=== PATIENT | male | born 1955 | race African-American/Black ===

== ENCOUNTER 2019-12-13 08:50 | Outpatient (CLI) | payer OTHER, SELFPAY ==
--- NOTE | ~2019-12-13 | CT_ITS ---
EXAMINATION: CT chest abdomen pelvis w con EXAM DATE: 12/13/2019 09:24 INDICATION: Cancer body of stomach. TECHNIQUE: Spiral CT of the chest, abdomen and pelvis was performed without contrast. Axial, dave l and sagittal images were reviewed. Coronal maximum intensity pixel images of chest reviewed. The dose-length product (DLP) for this examination was 288.23 mGy-cm. The exposure was tailored accordin g to patient size (auto mA exposure control), and iterative reconstruction (ASIR) was used as additio nal dose reduction technique. Comparison is made to prior examination from 08/30/2019. FINDINGS: CHEST: There is a right-sided Chemo-Port. No central pulmonary emboli. The lungs are clear. There a re no pleural or pericardial effusions. Tracheobronchial tree is patent. There is no mediastinal, hilar or axillary lymphadenopathy. There is no pneumothorax. Heart normal in size. There are l ikely coronary arterial stent or stents. Correlate with prior cardiac history. ABDOMEN PELVIS: The liver, spleen, adrenal glands and pancreas are unremarkable. Gallbladder is unre markable. No biliary obstruction. Portal and splenic veins are patent. Kidneys enhance symmetrical ly. There is no hydronephrosis. The prostate is unremarkable. The bladder is unremarkable. There is no retroperitoneal or pelvic lymphadenopathy. There is mild scattered arteriosclerotic disease. Inguinal hernia repair. Small umbilical fat-containing hernia. The appendix is not positively visualized. There is no pericecal inflammatory change to suggest appe ndicitis. Again there are postoperative changes to the stomach with suture material, appearance not changed. There is moderate amount of colonic stool. No free intraperitoneal gas. There are no o steoblastic or osteolytic lesions identified. IMPRESSION: 1. No evidence of metastatic disease. 2. Surgical changes. Reviewed, dictated and finalized at location A.
[2019-12-13 09:15] LABS: Estimated Glomerular Filt Rate > 60
== END 2019-12-13 08:51 | disposition home or self-care (01) ==
LOC: ANHIMG 08:52
PROVIDERS: PCP Family Medicine; Visit Provider Internal Medicine Hematology & Oncology
DX: C16.9 Malignant neoplasm of stomach, unspecified (principal)
CPT/HCPCS: 36415; 71260; 74177; Q9967

== ENCOUNTER 2020-01-19 13:29 | Outpatient (CLI) | payer OTHER, SELFPAY ==
--- NOTE | ~2020-01-19 | XR_ITS ---
EXAMINATION: XR lumbar spine 2-3V DATE: 01/19/2020 13:44 INDICATION: Lumbar radiculopathy. TECHNIQUE: 3 views of lumbar spine were obtained. COMPARISON: CT abdomen and pelvis 12/13/2019 FINDINGS: There is 5 degrees dextrocurvature of thoracolumbar spine. Vertebral body heights are marcy l. There is mildly decreased disc height at L4-L5 with endplate osteophytes. There is multilevel mild facet joint osteoarthritis. Surgical clips overlie the right pelvis. IMPRESSION: 1. Mild lumbar spondylosis. Reviewed, dictated and finalized at location A. IMPRESSION: 1. Mild lumbar spondylosis.
== END 2020-01-19 13:30 | disposition home or self-care (01) ==
PROVIDERS: PCP Family Medicine; Visit Provider Family Medicine
DX: M47.26 Other spondylosis with radiculopathy, lumbar region (principal); M53.3 Sacrococcygeal disorders, not elsewhere classified; G89.29 Other chronic pain
CPT/HCPCS: 72100

== ENCOUNTER 2020-03-16 08:58 | Outpatient (CLI) | payer OTHER, SELFPAY ==
--- NOTE | ~2020-03-16 | CT_ITS ---
EXAMINATION: CT chest abdomen pelvis w con DATE: 03/16/2020 09:31 INDICATION: Cancer of the body of the stomach TECHNIQUE: Transaxial computed tomographic images of the chest, abdomen, and pelvis were obtained aft er the administration of 100 cc of Omnipaque 350 intravenous contrast. The dose-length product (DLP) was 339.94 mGy-cm. Automated exposure control and iterative reconstruction technique were employed. COMPARISON: 12/13/2019, 08/30/2019, 05/31/2019 FINDINGS: CHEST CT: A right internal jugular Port-A-Cath ends with its tip in the distal superior vena cava. A stable 3 m m nodule of the left upper lobe is consistent with old granulomatous disease. The lungs are free of a cute opacities. There is no pleural effusion or pneumothorax. No pathologically enlarged thoracic lym ph nodes are identified. The heart size is normal. ABDOMEN/PELVIS CT: Surgical changes are again noted in the stomach. There is persistent wall thickening of the stomach w hich may be due to incomplete distention. The liver, spleen, pancreas, gallbladder, and adrenal gland s are normal. The kidneys are unremarkable. The middle and right hepatic arteries are again noted to arise from the superior mesenteric artery. No pathologically enlarged abdominal or pelvic lymph nodes are identified. There is no free intraperitoneal gas or evidence of bowel obstruction. There is calc ified atherosclerosis of the aorta and many of the other arteries. A moderate volume of colonic stool is present. There is a fat-containing left inguinal hernia. Changes of right inguinal hernia repair are noted. IMPRESSION: 1. No evidence of metastatic disease in the chest, abdomen, or pelvis. 2. Persistent wall thickening of the stomach near the surgical site which may relate to incomplete di stention. Reviewed, dictated and finalized at location A. IMPRESSION: 1. No evidence of metastatic disease in the chest, abdomen, or pelvis. 2. Persistent wall thickening of the stomach near the surgical site which may r elate to incomplete distention.
[2020-03-16 09:25] LABS: Estimated Glomerular Filt Rate > 60
== END 2020-03-16 08:59 | disposition home or self-care (01) ==
PROVIDERS: PCP Family Medicine; Visit Provider Internal Medicine Hematology & Oncology
DX: C16.2 Malignant neoplasm of body of stomach (principal)
CPT/HCPCS: 36415; 71260; 74177; Q9967

== ENCOUNTER 2020-04-01 00:42 | Outpatient (CLI) | payer OTHER, SELFPAY ==
[2020-04-01 19:29] LABS: SARS-CoV-2 RNA PCR Negative
== END 2020-04-01 00:43 | disposition home or self-care (01) ==
LOC: ANHCOVIDDT 00:44
PROVIDERS: PCP Family Medicine; Visit Provider Surgery
DX: Z01.812 Encounter for preprocedural laboratory examination (principal); Z20.828 Contact with and (suspected) exposure to other viral communicable diseases
CPT/HCPCS: 87635; C9803; U0003

== ENCOUNTER 2020-04-04 01:08 | Day surgery (SDC) | payer OTHER, SELFPAY ==
[2020-03-27 14:12] VITALS: BMI 21.7
--- NOTE | 2020-04-04 10:50 | PM.HPGS ---
History of Present Illness History of Present Illness Consent: Risks, benefits, and alternatives of removal of a Port-A-Cath have been discussed and questions answered. Patient agrees to proceed with procedure. 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 He had laparoscopic surgical resection followed by chemotherapy for multiple rounds. He recently saw Dr. Desire jay in the office and was doing well so no further treatment is planned therefore is planned to have his Port-A-Cath removed at this time period Review of Systems Constitutional: Constitutional: Reports no additional constitutional complaints, Reports fatigue and Denies malaise Eyes: Eyes: Denies change in vision and Denies loss of vision ENT: Reports Normal hearing present, Denies change in voice, Denies dizziness, Denies hoarseness and Denies sore throat Cardiovascular: Cardiovascular: Denies chest pain, Denies leg edema and Denies dyspnea Respiratory: Respiratory: Denies cough, Denies dyspnea and Denies wheezing Gastrointestinal: Gastrointestinal: Denies hematochezia, Denies change in bowel habits and Denies heartburn Comments: known previous surgery for gastrectomy Genitourinary: Genitourinary: Denies urinary frequency and Denies urinary incontinence Integumentary/Breasts: Comments: no recent problems with port site. Neurologic: Reports Normal hearing present, Denies confusion, Denies dizziness, Denies loss of vision, Denies memory loss and Denies seizure-like activity Psychiatric: Psychiatric: Denies confusion, Denies depression and Denies memory loss Endocrine: Endocrine: Denies cold intolerance and Reports fatigue Hematologic/Lymphatic: Hematologic/Lymphatic: Denies easy bleeding and Denies easy bruising Allergic/Immunologic: Allergic/Immunologic: Denies wheezing PMFSH Past Medical History Medical History (Updated 04/04/20 @ 10:55 by Ricardo Nieves MD) Environmental allergies Erectile dysfunction Folliculitis Gastric adenocarcinoma (~2017) GERD without esophagitis Hypertension Internal jugular vein injury 1984 Port-A-Cath in place (~2017) Stomach cancer 05/2018 Surgical History Surgical History History of gastric surgery october 2018 History of hernia repair right inguinal History of right inguinal hernia repair Family History Family History Mother Hypertension Social History Social History Smoking status: Never smoker Second hand tobacco smoke exposure: No Smoking end date: 08/11/02 Alcohol intake: current Substance use: never Substance use type: does not use Spiritual care concerns: No Meds Home Medications and Allergies Home Medications Medication Instructions Recorded Confirmed Type cyclosporine 1 drp OPHTHALMIC (EYE) Q12H 06/03/19 04/04/20 History [id number] 1 tablet PO DAILY 06/03/19 04/04/20 History [Alvaro Multivitamin For Men] Allergies Allergy/AdvReac Type Severity Reaction Status Date / Time No Known Allergies Allergy Verified 04/04/20 13:07 Exam Const: General: cooperative, healthy appearing, no acute distress, well developed and alert; No confusion Nutritional Appearance: well nourished Orientation/consciousness: patient oriented x3 and No confusion Limitations: no limitations HENMT: Head: normal to inspection, normocephalic and atraumatic Ears: hearing grossly normal bilaterally General nose exam: Normal external nose present Face and sinus: no edema Mouth: Yes Normal oral and palatal mucosa present and Yes lip normal Throat: posterior oropharynx normal Eyes: General: appearance normal, both eyes and all related structures Sclera: sclerae normal Pupils: Eq
[2020-04-04 13:25] VITALS: BP 127/65; PULSE 70; RESP 16; TEMP 37.1; O2SAT 100
[2020-04-04 13:45] VITALS: BP 133/69; PULSE 69; RESP 16; O2SAT 98
[2020-04-04 13:55] VITALS: BP 137/71; PULSE 72; RESP 16; O2SAT 98
[2020-04-04 14:05] VITALS: BP 139/68; PULSE 80; RESP 20; O2SAT 99
[2020-04-04 14:15] VITALS: BP 128/63; PULSE 83; RESP 202; O2SAT 99
[2020-04-04 14:26] VITALS: BP 154/67; PULSE 80; RESP 16; O2SAT 100
--- NOTE | 2020-04-04 14:30 | PM.PROC ---
Procedure Note - Detailed Date of procedure: 04/04/20 Pre-op diagnosis: hx stomach ca Indwelling Port-A-Cath Post-op diagnosis: same Procedure performed: Removal of Port-A-Cath Description of procedure: Prior to the procedure the patient was seen in the holding area and the area of proposed surgery was marked. All questions were answered and the patient wished to proceed with removal of the Port-A-Cath. The patient was brought to the operating room and placed supine. The entire right neck, chest, and shoulder were prepped with chlorhexidine. The area was draped off. Time-out was performed confirming patient and site of surgery. Following this a 15 blade knife was used to make incision directly on the scar from the previous port placement. This was done after infiltrating local anesthetic into the area of and inferior to the scar and into the area of the pocket containing the port to some degree using 1% xylocaine with epinephrine. Following this we carefully dissected down to the junction of the port and catheter. Bovie cautery with needle-tip was used to carefully incise the capsule around the port and free up the scar tissue around the junction of the port and catheter. Two Prolene sutures that were holding the port to the underlying fascia were carefully excised with a 15 blade knife and mosquito hemostats. Following this the port was brought up and out of the pocket. Then watching the patient's respirations I carefully removed the catheter in one smooth pull while applying pressure in the lower right neck area at the catheter exit site as the patient was breathing out. Pressure was held for 1 minute. I used Bovie cautery on some the subcutaneous tissues as we waited for good clotting. Again hemostasis was checked in the wound using Bovie cautery for superficial hemostasis in the subcutaneous tissues. Following this closure was obtained with 2 layers. I used buried subcutaneous sutures of 3-0 Vicryl in the subcutaneous layer followed by a running subcuticular closure of 4-0 Monocryl on the skin. Patient tolerated the procedure well. Estimated blood loss was 4 cc Sponge, needle, and instrument counts were correct at the end the procedure and patient was taken to the outpatient recovery area in good condition. Anesthesia: local ( 2% xylocaine with epinephrine) Surgeon: Ricardo Nieves MD Handicapper [employer]: none Estimated blood loss (mL): 4 Drains: No Packing: No Pathology: none sent Complications: No immediate complications Condition: stable Disposition: same day ( outpatient recovery area) Findings: unremarkable port and catheter that were intact.
[2020-04-04] MEDS: LIDO 2%/EPINEPHRINE 1:100,000 20 ML VIAL INFILTRATE (14:31)
--- NOTE | 2020-04-04 14:52 | SUR.PHASEII ---
1437 - dr. moreno in room talking with pt
== END 2020-04-04 14:41 | disposition home or self-care (01) ==
PROVIDERS: PCP Family Medicine; Visit Provider Surgery
PROC: (CPT 36589; principal; 2020-04-04 14:00)
DX: Z45.2 Encounter for adjustment and management of vascular access device (principal); C16.9 Malignant neoplasm of stomach, unspecified; I10 Essential (primary) hypertension; K21.9 Gastro-esophageal reflux disease without esophagitis
CPT/HCPCS: 36590

== ENCOUNTER 2020-07-20 08:32 | Outpatient (CLI) | payer OTHER, SELFPAY ==
--- NOTE | ~2020-07-20 | CT_ITS ---
EXAMINATION: CT chest abdomen pelvis w con DATE: 07/20/2020 09:05 INDICATION: Gastric cancer restaging TECHNIQUE: Computed tomography (CT) of the chest, abdomen, and pelvis was performed with 100 cc Omnip aque 350 intravenous contrast. Automated exposure control and iterative reconstruction technique were employed. Exam dose: 412.48 mGy-cm total exam DLP. COMPARISON: 03/16/2020 CT chest abdomen pelvis FINDINGS: CHEST CT: Normal heart size. No pericardial or pleural effusion. No hilar or mediastinal mass lesion or lymphadenopathy. No thoracic aortic aneurysm or dissection. No pulmonary infiltrate or consolidation or pulmonary mass lesion. No pulmonary infiltrate or consolidation or pulmonary mass lesion. ABDOMEN/PELVIS CT: Diffuse hepatic steatosis. The gallbladder is present. No bile duct or pancreatic duct dilatation. No pancreatic mass lesion or calcification. Normal splenic size. Postoperative change of the stomach. Normal caliber of the abdominal aorta. No intraperitoneal or retroperitoneal or pelvic mass lesion or adenopathy or ascites. Status post right inguinal herniorrhaphy. Mild fat-containing left inguinal hernia. There is prostate enlargement and calcification. There is moderate diffuse thickening of the urinary bladder wall. No bowel obstruction, bowel wall thickening, pneumatosis or intraperitoneal free air. Normal appendix . No suspicious osteolytic or osteoblastic lesions are noted. IMPRESSION: Postoperative change of the stomach, likely due to partial resection for history of [place] carcinoma No evidence of metastatic disease Diffuse hepatic steatosis Multiple fat-containing left inguinal hernia; status post right inguinal herniorrhaphy Prostate enlargement and calcification, moderate thickening of the urinary bladder wall Reviewed, dictated and finalized at Location A. Reviewed, dictated and finalized at location A. ORATE LEGAL MANAGER IMPRESSION: Postoperative change of the stomach, likely due to partial resecti on for history of gastric carcinoma No evidence of metastatic disease Diffuse hepatic steatosis Multiple fat-containing left inguinal hernia; status post right inguinal hernio rrhaphy Prostate enlargement and calcification, moderate thickening of the urinary blad luz wall
[2020-07-20 08:59] LABS: Estimated Glomerular Filt Rate > 60
== END 2020-07-20 08:33 | disposition home or self-care (01) ==
LOC: ANHIMG 08:36
PROVIDERS: PCP Family Medicine; Visit Provider Internal Medicine Hematology & Oncology
DX: C16.2 Malignant neoplasm of body of stomach (principal); K76.0 Fatty (change of) liver, not elsewhere classified; N40.1 Benign prostatic hyperplasia with lower urinary tract symptoms
CPT/HCPCS: 71260; 74177; Q9967

== ENCOUNTER 2020-11-23 08:36 | Outpatient (CLI) | payer OTHER, SELFPAY ==
--- NOTE | ~2020-11-23 | CT_ITS ---
EXAMINATION: CT chest abdomen pelvis w con DATE: 11/23/2020 09:05 INDICATION: Cancer of the body of the stomach TECHNIQUE: Transaxial computed tomographic images of the chest, abdomen, and pelvis were obtained aft er the administration of 100 cc of Omnipaque 350 intravenous contrast. The dose-length product (DLP) was 450.87 mGy-cm. Automated exposure control and iterative reconstruction technique were employed. COMPARISON: 07/20/2020, 03/16/2020 FINDINGS: CHEST CT: The lungs are free of acute opacities. There is no pleural effusion or pneumothorax. No pathologicall y enlarged thoracic lymph nodes are identified. The heart size is normal. A stable granuloma is noted in the left upper lobe. ABDOMEN/PELVIS CT: There are stable surgical changes of the stomach. Wall thickening of the stomach near the surgical si te is stable. The liver, spleen pancreas, gallbladder, and adrenal glands are normal. The kidneys are unremarkable. The middle and right hepatic arteries arise from the superior mesenteric artery. There is calcified atherosclerosis of the aorta and many of the other arteries. No pathologically enlarged abdominal or pelvic lymph nodes are identified. There is no free intraperitoneal gas or evidence of bowel obstruction. There is a left inguinal hernia containing fat. IMPRESSION: 1. Surgical changes and chronic wall thickening in the stomach without evidence of recurrence or meta static disease in the chest, abdomen, or pelvis. Reviewed, dictated and finalized at location B. IMPRESSION: 1. Surgical changes and chronic wall thickening in the stomach without evidence of recurrence or metastatic disease in the chest, abdomen, or pelvis.
[2020-11-23 09:00] LABS: Estimated Glomerular Filt Rate > 60
== END 2020-11-23 08:37 | disposition home or self-care (01) ==
PROVIDERS: PCP Family Medicine; Visit Provider Internal Medicine Hematology & Oncology
DX: C16.2 Malignant neoplasm of body of stomach (principal)
CPT/HCPCS: 71260; 74177; Q9967

== ENCOUNTER 2020-12-01 15:53 | Outpatient (CLI) | payer OTHER, SELFPAY ==
--- NOTE | ~2020-12-01 | XR_ITS ---
XR lumbar spine 2-3V 12/01/2020 16:19 Indication: Low back pain for 6 months Procedure: 3 views lumbar spine Comparison: 01/19/2020 Findings: Vertebral body heights are maintained. There is mild disc narrowing at L4-5 and L5-S1. Evid ence for spondylolysis or spondylolisthesis. Pedicles intact. Sacral foramen are symmetric. There is mild facet hypertrophy at L4-5 and L5-S1. Impression: 1: Stable mild lumbar spondylosis. Reviewed, dictated and finalized at location A. Impression: 1: Stable mild lumbar spondylosis.
== END 2020-12-01 15:54 | disposition home or self-care (01) ==
LOC: ANHIMG 15:59
PROVIDERS: PCP Family Medicine; Visit Provider Family Medicine
DX: M47.896 Other spondylosis, lumbar region (principal)
CPT/HCPCS: 72100

== ENCOUNTER 2021-04-02 10:42 | Outpatient (CLI) | payer OTHER, SELFPAY ==
--- NOTE | ~2021-04-02 | CT_ITS ---
EXAMINATION: CT chest abdomen pelvis w con DATE: 04/02/2021 11:44 INDICATION: Cancer of body of stomach. Restaging. TECHNIQUE: Computed tomography (CT) of the chest, abdomen, and pelvis was performed with 100 cc Omnip aque 350 intravenous contrast. Automated exposure control and iterative reconstruction technique were employed. Exam dose: 666.81 mGy-cm total exam DLP. COMPARISON: 11/23/2020 CT chest abdomen pelvis FINDINGS: CHEST CT: The lungs are clear of infiltrate or consolidation. No pulmonary mass lesion. Normal heart size. No p ericardial or pleural effusion. No thoracic aortic aneurysm or dissection. No hilar or mediastinal ma ss lesion or lymphadenopathy. ABDOMEN/PELVIS CT: The liver, gallbladder, bile ducts, spleen, pancreas, pancreatic duct, and adrenal glands and left ki dney are unremarkable. There is mild right hydronephrosis and parapelvic and periureteral fluid accumulation. The right uret er is not well traced. Repeat CT examination with IV contrast material and delayed imaging and follow -up KUB would be helpful for further evaluation. Postoperative change of the stomach. Right inguinal herniorrhaphy. Left fat-containing inguinal hernia. Normal caliber of the abdominal aorta. No intraperitoneal or retroperitoneal or pelvic mass lesion or adenopathy. Mild prostate calcification. Mild diffuse bladder wall thickening. No bowel obstruction or intraperitoneal free air. Small fat-containing umbilical hernia. Moderate degenerative disc disease at L4-5. No suspicious osteolytic or osteoblastic lesions IMPRESSION: Mild right hydronephrosis, right parapelvic and periureteral fluid; ureteral obstruction is suspected but not definitively localized. No obstructing calculus is noted. Consider repeat IV co ntrast CT abdomen pelvis imaging to include delayed views and follow-up KUB for further evaluation. Status post partial gastrectomy for gastric cancer; no recurrent or metastatic disease is evident. Reviewed, dictated and finalized at Location A. Reviewed, dictated and finalized at location A. IMPRESSION: Mild right hydronephrosis, right parapelvic and periureteral fluid ; ureteral obstruction is suspected but not definitively localized. No obstruct ing calculus is noted. Consider repeat IV contrast CT abdomen pelvis imaging to include delayed views and follow-up KUB for further evaluation. Status post partial gastrectomy for gastric cancer; no recurrent or metastatic disease is evident.
[2021-04-02 11:32] LABS: Estimated Glomerular Filt Rate > 60
== END 2021-04-02 10:43 | disposition home or self-care (01) ==
PROVIDERS: PCP Family Medicine; Visit Provider Internal Medicine Hematology & Oncology
DX: C16.2 Malignant neoplasm of body of stomach (principal)
CPT/HCPCS: 71260; 74177; Q9967

== ENCOUNTER 2021-04-09 10:00 | Outpatient (CLI) | payer OTHER, SELFPAY | END 2021-04-09 10:01 | disposition home or self-care (01) | LOC: ANHLAB 10:10 | PROVIDERS: PCP Family Medicine; Visit Provider Internal Medicine Hematology & Oncology | DX: C16.2 Malignant neoplasm of body of stomach (principal) | CPT/HCPCS: 36415; 80053; 85025 ==

== ENCOUNTER 2021-06-27 08:05 | Outpatient (CLI) | payer OTHER, SELFPAY ==
--- NOTE | ~2021-06-27 | XR_ITS ---
EXAMINATION: XR abdomen/kub 1V DATE: 06/27/2021 08:22 INDICATION: Hydronephrosis. TECHNIQUE: A supine view of the abdomen was obtained. COMPARISON: CT abdomen and pelvis 06/27/2021 FINDINGS: There are no dilated loops of bowel. There is no urolithiasis. There are surgical clips fro m right inguinal hernia repair. IMPRESSION: 1. No urolithiasis. Reviewed, dictated and finalized at location A. AL DOCTOR IMPRESSION: 1. No urolithiasis.
--- NOTE | ~2021-06-27 | CT_ITS ---
EXAMINATION: CT abdomen pelvis wo/w con DATE: 06/27/2021 09:01 INDICATION: Hydronephrosis TECHNIQUE: Computed tomography (CT) of the abdomen and pelvis was performed without and subsequently with 130 cc Omnipaque 350 subsequently with intravenous contrast. Automated exposure control and iter ative reconstruction technique were employed. Exam dose: 699.80 mGy-cm total exam DLP. COMPARISON: 04/02/2021 CT chest abdomen pelvis FINDINGS: The lung bases are clear of infiltrate or consolidation. Normal heart size. No pericardial or pleural effusion. The liver, gallbladder, spleen, pancreas and adrenal glands are unremarkable. No renal mass lesion is detected. No filling defect of the renal collecting systems, ureters or urina ry bladder. There are bilateral ureteral jets. No urinary tract obstruction is detected. No bowel obstruction, bowel wall thickening, pneumatosis or intraperitoneal free air. The urinary bladder is unremarkable. There is mild prostate calcification. Normal appendix No bowel obstruction, bowel wall thickening, pneumatosis or intraperitoneal free air. Normal caliber of the abdominal aorta. No intraperitoneal or retroperitoneal or pelvic mass lesion or adenopathy. Small fat-containing inguinal hernia. Status post right inguinal herniorrhaphy. Small fat-containing left inguinal hernia No suspicious osteolytic or osteoblastic lesions are noted. Moderately prominent degenerative disc di sease at L4-5. IMPRESSION: No urinary tract calculus or obstruction is evident Reviewed, dictated and finalized at Location A. Reviewed, dictated and finalized at location A. ER WORKER
[2021-06-27 08:32] LABS: Estimated Glomerular Filt Rate > 60
== END 2021-06-27 08:06 | disposition home or self-care (01) ==
LOC: ANHIMG 08:10
PROVIDERS: PCP Family Medicine; Visit Provider Urology
DX: R61 Generalized hyperhidrosis (principal)
CPT/HCPCS: 74018; 74178; Q9967

== ENCOUNTER 2021-09-18 08:57 | Outpatient (CLI) | payer OTHER, SELFPAY ==
--- NOTE | ~2021-09-18 | CT_ITS ---
EXAMINATION: CT chest abdomen pelvis w con EXAM DATE: 09/18/2021 09:24 INDICATION: Cancer Of Body Of Stomach. TECHNIQUE: Spiral CT of the chest, abdomen and pelvis was performed following intravenous injection o f 100 mL Omnipaque 350. Axial, coronal and sagittal images chest, abdomen and pelvis were reviewed. Coronal maximum intensity pixel images of chest reviewed. The dose-length product (DLP) for this ex amination was 287.88 mGy-cm. The exposure was tailored according to patient size (auto mA exposure c ontrol), and iterative reconstruction (ASIR) was used as additional dose reduction technique. Compar ed to prior chest abdomen pelvis CT from 04/02/2021, prior abdomen pelvis CT from 06/27/2021. FINDINGS: CHEST: The lungs are clear. There are no pleural or pericardial effusions. Tracheobronchial tree is patent. There is no mediastinal, hilar or axillary lymphadenopathy. There is no pneumothorax. Heart normal in size. There is mild coronary arterial calcification, arterial sclerosis. ABDOMEN PELVIS: Small amount of fluid in the between the liver and diaphragm anteriorly in. Diffuse r etroperitoneal ill-defined soft tissue density insinuating around the aorta and IVC, extending throug h the pelvis, presacral region, bottom aspect of the pelvic floor. This appears to have increased in thickness, scope compared to previous examination, differential diagnosis including retroperitoneal f ibrosis and carcinomatosis. Some surgical suture material along the gastric lesser curvature. The liver, spleen, adrenal glands a nd pancreas are unremarkable. Gallbladder is unremarkable. No biliary obstruction. Portal and sple saniya veins are patent. Kidneys enhance symmetrically. There is no hydronephrosis. The prostate is unremarkable. Diffuse bladder wall thickening. There are no findings to suggest appendicitis. Ther e is expected amount of colonic stool. No free intraperitoneal gas. There are no osteoblastic or osteolytic lesions identified. Right inguinal surgical clips. IMPRESSION: 1. Developing diffuse ill-defined soft tissue density insinuating in the retroperitoneum, more exten sive at the pelvic inlet and within the pelvic presacral space and floor, differential diagnosis incl uding retroperitoneal carcinomatosis or fibrosis. 2. Diffuse bladder wall thickening, with above-mentioned fat stranding surrounding this is well. 3. Gastric surgical changes. Reviewed, dictated and finalized at location B. ORM ATTENDANT IMPRESSION: 1. Developing diffuse ill-defined soft tissue density insinuating in the retro peritoneum, more extensive at the pelvic inlet and within the pelvic presacral space and floor, differential diagnosis including retroperitoneal carcinomatosi s or fibrosis. 2. Diffuse bladder wall thickening, with above-mentioned fat stranding surroun ding this is well. 3. Gastric surgical changes.
== END 2021-09-18 08:58 | disposition home or self-care (01) ==
PROVIDERS: PCP Family Medicine; Visit Provider Internal Medicine Hematology & Oncology
DX: C16.2 Malignant neoplasm of body of stomach (principal); R93.89 Abnormal findings on diagnostic imaging of other specified body structures
CPT/HCPCS: 71260; 74177; Q9967

== ENCOUNTER 2021-10-30 12:11 | Outpatient (CLI) | payer OTHER, SELFPAY ==
--- NOTE | ~2021-10-30 | PE_ITS ---
EXAMINATION: PET skull to mid thigh DATE: 10/30/2021 16:09 INDICATION: Stomach cancer TECHNIQUE: Blood glucose level was 140 mg/dL. 10.12 mCi of 18-fluorodeoxyglucose (18-FDG) was adminis tered i.v. Low dose computed tomography (CT) images were acquired from the base of the brain to the p roximal thighs for attenuation correction and anatomic localization. Positron emission tomography (PE T) images were acquired in the same distribution beginning 83 minutes after injection. Images includi ng fused PET/CT images were reconstructed in axial, coronal, and sagittal planes. Automated exposure control technique was employed. The dose-length product was 256.97mGy-cm. COMPARISON: CT chest, abdomen and pelvis dated 09/18/2021 FINDINGS: Head/neck: There is symmetric increased activity in the oral cavity and muscles of the eyelids without CT correl ate, likely physiologic. No pathologically enlarged cervical lymphadenopathy or suspicious foci of in creased FDG uptake in the visualized head or neck. Chest: Small left pleural effusion. No suspicious pulmonary nodules, pneumonia, pulmonary edema or other pul monary infiltrates. Heart size is normal. Atherosclerotic coronary artery calcification. No pericardi al effusion. Thoracic aorta is normal in caliber. No pathologically enlarged or FDG avid thoracic lym phadenopathy. Abdomen/pelvis/proximal thighs: There is new stenting at the distal gastric body and antrum spanning the region of likely anastomotic suture line related to a prior partial gastrectomy which can be seen on the prior CT study. There is no significant surrounding increased FDG uptake to suggest residual/recurrent disease. CT evaluation is limited by absence of intravenous contrast, the paucity of visceral fat in the upper abdomen as w ell as some mesenteric edema and small amount of predominantly perisplenic ascites. Physiologic renal accumulation and excretion of FDG activity in the kidneys, bladder and along portions of ureters. He terogeneous FDG uptake in the liver with geographic region of increased activity in the posterior seg ments of the right hepatic lobe. No discrete FDG avid mass identified. There appears to be . Ductal d ilation throughout the liver relatively sparing the region with increased FDG uptake. Limited assessm ent of the gallbladder, pancreas, spleen and bilateral adrenal glands is unremarkable. Mild uptake sc attered throughout the bowels without radiologic correlate, also likely physiologic. Again seen is in creased soft tissue density in the retroperitoneal tissues of the abdomen and most prominently in the pelvis at the presacral space and surrounding the bladder which is also without increased FDG activi ty. No other abnormal foci of increased FDG uptake or pathologically enlarged lymphadenopathy in the abdomen, pelvis or proximal thighs. Musculoskeletal: There is diffuse mild increased FDG uptake throughout the bones corresponds in the spine and pelvis w ithout radiologic correlate likely related to bone marrow stimulation. There is photopenia of the mar row associated with several of the vertebral bodies centered at the thoracolumbar junction which sugg ests focally decreased marrow activity likely related to a prior radiation port. IMPRESSION: 1. No abnormal FDG uptake to elevate suspicion for metastatic disease surrounding the stented gastroe nteral anastomosis post prior partial distal gastrectomy for reported gastric cancer. Similarly there is no evident increased FDG uptake associated with the diffuse infiltrating retroperitoneal soft tis lior in the abdomen and primarily in the pelvis particularly presacral space which may represent retro peritoneal fibromatosis. Patient has a reported prior outside institution PET study and it would be u seful to assess for the degree of uptake associated with the initial malignancy or any known metastat ic disease at that time in or
[2021-10-30 12:38] LABS: Glucose Point of Care 140 mg/dl (65-105)
== END 2021-10-30 12:12 | disposition home or self-care (01) ==
LOC: ANHIMG 12:11
PROVIDERS: PCP Family Medicine; Visit Provider Internal Medicine Hematology & Oncology
DX: C16.2 Malignant neoplasm of body of stomach (principal)
CPT/HCPCS: 78815; A9552

== ENCOUNTER 2021-11-01 13:57 | Emergency (ER) | payer OTHER, SELFPAY ==
[2021-11-01] VITALS (47 sets, daily range): BP systolic 85–143; BP diastolic 44–97; PULSE 91–131; RESP 16–46; TEMP 37.3; O2SAT 93–100
--- NOTE | ~2021-11-01 | CT_ITS ---
EXAMINATION: CT abdomen pelvis w con INDICATION: Biliary obstruction and abdominal pain, history of gastric cancer TECHNIQUE: Computed tomographic images of the abdomen and pelvis were obtained after the administrati on of 100 cc of Omnipaque 350 intravenous contrast. The dose-length product (DLP) was 185.18 mGy-cm. Automated exposure control and iterative reconstruction technique were employed. COMPARISON: PET/CT, 10/30/2021 FINDINGS: Minimal dependent atelectasis is present in the lung bases. The heart size is normal. A patrice nt is present in the distal stomach which extends into the proximal duodenum. There is severe intrahe patic and extrahepatic biliary dilatation which continues to the region of the ampulla. There is mild prominence of the pancreatic duct. No definite mass is identified in this region and no significant abnormal FDG uptake was identified on recent PET/CT. There is a possible stone of the distal common b ile duct. The liver, spleen, and adrenal glands are normal. The gallbladder is distended. The kidneys are unremarkable. There is calcified atherosclerosis of the aorta and many of the other arteries. No pathologically enlarged abdominal or pelvic lymph nodes are identified. There is no free intraperito dane gas or evidence of bowel obstruction. There is stable presacral soft tissue density. Circumferen tial wall thickening of the urinary bladder is noted. There is moderate lumbar spondylosis. IMPRESSION: 1. Severe intrahepatic and extrahepatic biliary dilatation continuing to the level region of the ampu lla with possible stone in the distal common bile duct but no definite mass identified. 2. Diffuse wall thickening of the urinary bladder which could reflect cystitis versus chronic outlet obstruction Reviewed, dictated and finalized at location B. IMPRESSION: 1. Severe intrahepatic and extrahepatic biliary dilatation continuing to the le samuel region of the ampulla with possible stone in the distal common bile duct bu t no definite mass identified. 2. Diffuse wall thickening of the urinary bladder which could reflect cystitis versus chronic outlet obstruction
[2021-11-01 14:46] LABS: Hematocrit 32.1 % (42.0-52.0); Mean Corpuscular HGB Conc 37.4 g/dl (32-36); Mean Corpuscular Hemoglobin 31.1 pg (26-34); Mean Corpuscular Volume 83.2 fl (80-100); Mean Platelet Volume 11.7 fl (7.4-10.4); Platelet Count Result 248 k/mm3 (150-375); Red Blood Count 3.86 M/mm3 (4.6-6.20); Red Cell Distribution Width 16.3 % (11.5-14.5); White Blood Count 31.2 K/mm3 (4.5-10.0)
[2021-11-01 15:08] LABS: Band Neutrophils Percent 10 % (0-6); Hypochromasia 1+ (NORMAL); Lymphocytes Absolute Manual 0.93 K/mm3 (1.1-4.5); Neutrophils Absolute Manual 30.26 K/mm3 (1.3-6.7); Neutrophils Percent Manual 87 % (46-73); Platelet Estimate Adequate (Adequate); Target Cells 1+ (NORMAL); Total Cells Counted 100
[2021-11-01] MEDS: ONDANSETRON INJ 4 MG/2 ML VIAL IV PUSH ×2 (15:15→20:48)
[2021-11-01] MEDS: SODIUM CHLORIDE 0.9% IV 1,000 ML 999 ML IV CONT ×2 (15:15→16:28)
[2021-11-01] MEDS: MORPHINE SULFATE (*CRX) 4 MG/ML INJ IV PUSH (15:15)
[2021-11-01 16:02] LABS: Alanine Aminotransferase 244 U/L (4-50); Albumin Level 3.5 g/dL (3.5-5.1); Alkaline Phosphatase 664 U/L (38-126); Anion Gap 12 mmol/L (8-16); Aspartate Amino Transferase 227 U/L (17-59); Bilirubin,Total 17.7 mg/dL (0.2-1.3); Blood Urea Nitrogen 23 mg/dL (9-20); Calcium 9.3 mg/dL (8.4-10.2); Carbon Dioxide 24 mmol/L (22-30); Chloride 98 mmol/L (98-107); Estimated CRCL calculation 37 ml/min; Estimated Glomerular Filt Rate 57; Glucose 187 mg/dL (65-110); Lipase 863 U/L (23-300); Potassium 3.9 mmol/L (3.4-5.0); Sodium 134 mmol/L (137-145)
[2021-11-01 16:04] LABS: Alanine Aminotransferase 239 U/L (4-50); Albumin Level 3.6 g/dL (3.5-5.1); Alkaline Phosphatase 667 U/L (38-126); Aspartate Amino Transferase 229 U/L (17-59); Bilirubin Direct 10.5 mg/dL (0-0.3); Bilirubin,Total 17.8 mg/dL (0.2-1.3)
[2021-11-01 16:23] LABS: Lactic Acid Reflex 5.6 mmol/L (0.7-2.1)
--- NOTE | 2021-11-01 17:17 | ED.ABDPAIN ---
HPI - Abdominal Pain General Chief Complaint: Abdominal Pain <Candelario Oocnnor MD - Last Filed: 11/02/21 19:17> Stated Complaint: abd pain-n/v <Candelario Oconnor MD - Last Filed: 11/02/21 19:17> Time Seen by Provider: 11/01/21 14:37 <Candelario Oconnor MD - Last Filed: 11/02/21 19:17> History of Present Illness HPI narrative: Patient is a 66-year-old male who presents the ER with abdominal pain as well as nausea and vomiting. Patient reports he has been having abdominal pain and inability to eat for several months. He is originally diagnosed with gastric outlet obstruction and underwent stenting by Dr. Boyer at [facility]. Patient has history of gastric cancer that required resection and chemotherapy. Dr. Miller at [facility] is his oncologist. Patient underwent the gastric stenting due to gastroenteral stenosis on 10/15/2021. Reports since then he has continued to have discomfort. He was seen by a GI physician at this hospital, Dr. Ring, who recommended patient begin taking Ensure in order to gain weight. Patient reports a 40 pound weight loss over 1 month. Patient also notes that his urine has begun to turn orange and today his eyes were yellow. Patient also notes that she underwent a PET scan yesterday at this facility for further evaluation of soft tissue densities that were seen that were concerning for possible recurrence/metastasis of his gastric cancer. <Candelario Oconnor MD - Last Filed: 11/02/21 19:17> Related Data Home Medications: Home Medications Medication Instructions Recorded Confirmed Alvaro Multivitamin For Men 1 tablet PO DAILY 06/03/19 10/10/21 cyclosporine 1 drp OPHTHALMIC (EYE) Q12H 06/03/19 10/10/21 tenofovir alafenamide 25 mg tablet 25 mg PO DAILY tablet 08/30/21 10/10/21 pantoprazole 40 mg tablet,delayed 40 mg PO BID tablet 10/10/21 10/10/21 release clobetasol 0.05 % topical ointment 1 applic TOPICAL .prn g 10/31/21 <Candelario Oconnor MD - Last Filed: 11/02/21 19:17> Allergies/Adverse Reactions: Allergies Allergy/AdvReac Type Severity Reaction Status Date / Time No Known Allergies Allergy Verified 11/01/21 14:36 <Candelario Oconnor MD - Last Filed: 11/02/21 19:17> Review of Systems Review of Systems: All systems reviewed & are unremarkable except as noted in HPI and below <Candelario Oconnor MD - Last Filed: 11/02/21 19:17> Constitutional: Constitutional: Denies chills, Reports fatigue, Denies fever(s) and Reports weakness <Candelario Oconnor MD - Last Filed: 11/02/21 19:17> ENT: Denies nasal congestion and Denies sore throat <Candelario Oconnor MD - Last Filed: 11/02/21 19:17> Cardiovascular: Cardiovascular: Denies chest pain, Denies rapid heart rate and Denies radiating jaw, neck or arm pain <Candelario Oconnor MD - Last Filed: 11/02/21 19:17> Respiratory: Respiratory: Denies cough, Denies dyspnea and Denies wheezing <Candelario Oconnor MD - Last Filed: 11/02/21 19:17> Gastrointestinal: Gastrointestinal: Reports abdominal pain, Denies constipation, Denies diarrhea, Reports nausea and Reports vomiting <Candelario Oconnor MD - Last Filed: 11/02/21 19:17> Genitourinary: Genitourinary: Denies dysuria and Denies urinary frequency <Candelario Oconnor MD - Last Filed: 11/02/21 19:17> Comments: Dark colored urine <Candelario Oconnor MD - Last Filed: 11/02/21 19:17> [facility] Past Medical History Medical History: Medical History (Updated 11/01/21 @ 22:14 by Candelario Oconnor MD) Environmental allergies Erectile dysfunction Folliculitis Gastric adenocarcinoma (~2017) Gastric stenosis Gastric interval stenting 10/15/2021, Dr. 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
[2021-11-01 17:40] LABS: Add Urine Microscopic? YES; Appearance Urine Cloudy (Clear); Bacteria Urine Trace /hpf; Bilirubin Urine 2+ (Negative); Blood Urine 2+ (Negative); Color Urine Amber (Yellow); Glucose Urine UA Negative (Negative); Ketones Urine Negative (Negative); Leukocyte Esterase Ur Negative LEU/UL (Negative); Nitrate Urine Negative (Negative); Protein Urine 2+ mg/dL (Negative); RBC Urine 51-75 /hpf (0-2); WBC Urine 0-3 /hpf
[2021-11-01 17:49] LABS: Specific Grav Ur 1.055 (1.001-1.035)
[2021-11-01 19:01] LABS: Reflex Lactic Acid Yes or No Add Lactic
[2021-11-01] MEDS: SODIUM CHLORIDE 0.9% IV 1,000 ML 150 ML IV CONT (19:30)
[2021-11-01 19:37] LABS: Lactic Acid Reflex 4.4 mmol/L (0.7-2.1)
--- NOTE | 2021-11-01 19:43 | PC.NURSE ---
Addendum entered by Becky Morales 11/01/21 19:57: Received information on lactic from EDP, relayed information to [facility]. They are short on beds, will call back with information. Original Note: Spoke with Amee at [facility]. Per Amee, they are waiting on update on the lactic to determine if patient bed need is for ICU or Stepdown.
--- NOTE | 2021-11-01 19:51 | PC.NURSE ---
verbal order from EDP konrad to change Normal saline to bolus rate at this time. maintenance rate changed to bolus rate at this time.
[2021-11-01] MEDS: PANTOPRAZOLE SODIUM IV 40 MG VIAL IV PUSH (20:45)
--- NOTE | 2021-11-01 20:46 | PC.NURSE ---
Musa with [facility] called. There are no ICU beds available at this time, they will reassess around 2300 and call with update.
[2021-11-02] VITALS (80 sets, daily range): BP systolic 113–141; BP diastolic 68–90; PULSE 79–129; RESP 14–27; TEMP 36.9; O2SAT 95–100
--- NOTE | 2021-11-02 02:23 | PC.NURSE ---
Called [facility] transfer center (02:23), checked on bed status. No beds available tonight, but they will keep patient on waitlist and requested updates if patients status changes
--- NOTE | 2021-11-02 02:27 | PC.NURSE ---
Called [facility] transfer center to request bed status. No beds available at this time, at capacity.
--- NOTE | 2021-11-02 07:20 | PC.NURSE ---
Care assumed of pt at this time. Pt is awaiting bed assignment at [facility]. Pt given water, family at bedside.
[2021-11-02 09:56] LABS: Hematocrit 29.7 % (42.0-52.0); Hemoglobin 11.2 g/dL (14.0-18.0); Immature Platelet Fraction Pct 13.7 % (0.9-11.2); Mean Corpuscular HGB Conc 37.7 g/dl (32-36); Mean Corpuscular Hemoglobin 30.8 pg (26-34); Mean Corpuscular Volume 81.6 fl (80-100); Mean Platelet Volume 11.6 fl (7.4-10.4); Platelet Count Result 45 k/mm3 (150-375); Red Blood Count 3.64 M/mm3 (4.6-6.20); Red Cell Distribution Width 16.2 % (11.5-14.5); White Blood Count 41.3 K/mm3 (4.5-10.0)
--- NOTE | 2021-11-02 10:04 | PC.NURSE ---
Clinical update provided to Nicolle at [facility] access line. States they will continue to look for a bed.
[2021-11-02 10:06] LABS: Lactic Acid Reflex 1.2 mmol/L (0.7-2.1)
[2021-11-02 10:07] LABS: Alanine Aminotransferase 199 U/L (4-50); Albumin Level 3.1 g/dL (3.5-5.1); Alkaline Phosphatase 507 U/L (38-126); Anion Gap 5 mmol/L (8-16); Aspartate Amino Transferase 174 U/L (17-59); Bilirubin Direct 8.7 mg/dL (0-0.3); Bilirubin,Total 15.2 mg/dL (0.2-1.3); Blood Urea Nitrogen 21 mg/dL (9-20); Calcium 8.6 mg/dL (8.4-10.2); Carbon Dioxide 26 mmol/L (22-30); Chloride 107 mmol/L (98-107); Estimated CRCL calculation 60 ml/min; Estimated Glomerular Filt Rate > 60; Glucose 119 mg/dL (65-110); Potassium 3.8 mmol/L (3.4-5.0); Sodium 138 mmol/L (137-145)
[2021-11-02 10:14] LABS: Band Neutrophils Percent 17 % (0-6); Lymphocytes Absolute Manual 2.06 K/mm3 (1.1-4.5); Metamyelocytes Percent 1 %; Monocytes Absolute Manual 1.23 K/mm3 (0.1-0.90); Monocytes Percent Manual 3 % (3-9); Neutrophils Absolute Manual 37.58 K/mm3 (1.3-6.7); Neutrophils Percent Manual 74 % (46-73); Platelet Estimate Decreased (Adequate); Total Cells Counted 100
[2021-11-02 10:15] LABS: Ovalocytes 1+ (NORMAL); Target Cells 2+ (NORMAL)
--- NOTE | 2021-11-02 10:15 | PC.NURSE ---
Per Dr. Oconnor - asked to speak with [facility] to give updated lab results to the transfer center. call made at [phone]
[2021-11-02 10:16] LABS: Anisocytosis 2+ (NORMAL); Atypical Lymphocytes Present; Hypochromasia 2+ (NORMAL)
--- NOTE | 2021-11-02 11:28 | PC.NURSE ---
BSSR given to Rosie Guillen
[2021-11-02] MEDS: SODIUM CHLORIDE 0.9% IV 1,000 ML 150 ML IV CONT (16:09)
--- NOTE | 2021-11-02 16:35 | PC.NURSE ---
Patient able to ambulate to the restroom without difficulty or assistance. Custodial Supervisor walked with patient for standby assist but patient didn't require any assistance.
--- NOTE | 2021-11-02 20:54 | PC.NURSE ---
Pt ambulated to restroom and back without difficulty. Pt and family updated.
[2021-11-02 21:51] LABS: SARS-CoV-2 RNA PCR Negative
--- NOTE | 2021-11-02 22:37 | PC.NURSE ---
ACCEPTED AND WAITING ON BED PLACEMENT FROM FOLLOWING FACILITIES: [facility]: LAST CALLED WITH UPDATED BED INFORMATION 11/02/21 @1830 [facility]: LAST CALLED WITH UPDATED BED INFORMATION 11/02 @1840 [facility]: LAST CALLED WITH UPDATED BED INFORMATION 11/02 @2100 [facility] LAST CALLED WITH UPDATED BED INFORMATION 11/02 @2236
--- NOTE | 2021-11-03 04:47 | PC.NURSE ---
[facility] called. awaiting bed placement at this time
[2021-11-03] MEDS: ONDANSETRON INJ 4 MG/2 ML VIAL IV PUSH (06:01)
[2021-11-03] MEDS: PANTOPRAZOLE SODIUM IV 40 MG VIAL IV PUSH (06:01)
--- NOTE | 2021-11-03 07:10 | PC.NURSE ---
Assumed care of pt. at this time. Report from SARBJIT Lombardo
[2021-11-03 07:20] VITALS: BP 133/79; PULSE 79; RESP 14; O2SAT 98
--- NOTE | 2021-11-03 07:38 | PC.NURSE ---
unitizer ordered pt room tray at [id number]
--- NOTE | 2021-11-03 08:02 | PC.NURSE ---
Megan uribe/ [facility] transfer center states pt. has a bed at [facility]. [id number]
--- NOTE | 2021-11-03 08:36 | PC.NURSE ---
attempted to call report to [facility].
--- NOTE | 2021-11-03 09:10 | PC.NURSE ---
Report Called to SARBJIT Perry. attempting to get an ambulance for pt.
--- NOTE | 2021-11-03 09:28 | PC.NURSE ---
[facility] contact [phone] eta [phone]
[2021-11-03 09:30] VITALS: BP 129/77; PULSE 85; RESP 14; TEMP 36.1; O2SAT 100
--- NOTE | 2021-11-03 10:50 | PC.NURSE ---
nuris has arrived and is aware that pt is going [place] [facility]
[2021-11-03 10:55] VITALS: BP 133/80; PULSE 88; RESP 14; O2SAT 97
== END 2021-11-03 10:55 | disposition short-term general hospital (02) ==
PROVIDERS: Emergency Medicine; Family Medicine; Emergency Provider Emergency Medicine; PCP Family Medicine
DX: K83.09 Other cholangitis (principal); Z20.822 Contact with and (suspected) exposure to COVID-19; C16.9 Malignant neoplasm of stomach, unspecified; K21.9 Gastro-esophageal reflux disease without esophagitis; I10 Essential (primary) hypertension; M19.90 Unspecified osteoarthritis, unspecified site; Z90.3 Acquired absence of stomach [part of]; Z92.21 Personal history of antineoplastic chemotherapy; Z87.891 Personal history of nicotine dependence; R93.41 Abnormal radiologic findings on diagnostic imaging of renal pelvis, ureter, or bladder
CPT/HCPCS: 36415; 74177; 80048; 80053; 80076; 81001; 83605; 83690; 85025; 85055; 87040; 87077; 87186; 96361; 96365; 96366; 96375; 99285; C9113; C9803; J2270; J2405; J2543; J7030; Q9967; U0003; U0005

== ENCOUNTER 2022-01-30 09:51 | Outpatient (CLI) | payer OTHER, SELFPAY ==
[2022-01-30 10:12] LABS: Hematocrit 26.7 % (42.0-52.0); Hemoglobin 8.5 g/dL (14.0-18.0); Mean Corpuscular HGB Conc 31.8 g/dl (32-36); Mean Corpuscular Hemoglobin 29.9 pg (26-34); Mean Platelet Volume 10.1 fl (7.4-10.4); Platelet Count Result 465 k/mm3 (150-375); Red Blood Count 2.84 M/mm3 (4.6-6.20); Red Cell Distribution Width 14.5 % (11.5-14.5); White Blood Count 14.3 K/mm3 (4.5-10.0)
[2022-01-30 10:26] LABS: Band Neutrophils Percent 1 % (0-6); Lymphocytes Absolute Manual 1.14 K/mm3 (1.1-4.5); Monocytes Absolute Manual 0.14 K/mm3 (0.1-0.90); Monocytes Percent Manual 1 % (3-9); Neutrophils Absolute Manual 13.01 K/mm3 (1.3-6.7); Neutrophils Percent Manual 90 % (46-73); Platelet Estimate Increased (Adequate); Total Cells Counted 100
[2022-01-30 10:27] LABS: Hypochromasia 1+ (NORMAL); Poikilocytosis 1+ (NORMAL); Target Cells 1+ (NORMAL)
[2022-01-30 14:40] LABS: Iron 64 ug/dL (49-181)
[2022-01-30 14:46] LABS: Alanine Aminotransferase 18 U/L (6-50); Albumin Level 3.6 g/dL (3.5-5.1); Alkaline Phosphatase 95 U/L (38-126); Anion Gap 8 mmol/L (8-16); Aspartate Amino Transferase 29 U/L (17-59); Bilirubin,Total 0.3 mg/dL (0.2-1.3); Blood Urea Nitrogen 37 mg/dL (9-20); Calcium 10.4 mg/dL (8.4-10.2); Carbon Dioxide 28 mmol/L (22-30); Chloride 97 mmol/L (98-107); Estimated Glomerular Filt Rate > 60; Glucose 108 mg/dL (65-110); Potassium 4.9 mmol/L (3.4-5.0); Sodium 133 mmol/L (137-145)
[2022-01-30 14:50] LABS: Percent Iron Saturation 28 % (20-50)
[2022-01-30 15:37] LABS: Vitamin B12 > 1000.0 pg/mL (239-931)
== END 2022-01-30 09:52 | disposition home or self-care (01) ==
LOC: ANHLAB 09:53
PROVIDERS: Nurse Practitioner; PCP Family Medicine; Visit Provider Internal Medicine Hematology & Oncology
DX: N28.9 Disorder of kidney and ureter, unspecified (principal); D64.9 Anemia, unspecified
CPT/HCPCS: 36415; 80053; 82607; 82728; 83540; 83550; 85025